=== PATIENT | female | born 1975 | race American Indian/Alaskan Native ===

== ENCOUNTER 2019-03-31 18:16 | Emergency (ER) | payer MEDICAID ==
--- NOTE | 2019-03-31 21:03 | Event Note ---
ED Screening Note Date of service: 03/31/19 Time: 20:59 ED Screening Note: This is a 44 y.o. F. that presents to the ER with vaginal bleeding and abdominal pain started today. LMP 02/06/2019, A0 Patient states she found out 3 days ago [facility]. States she is 4 weeks . Denies vaginal discharge, urinary frequency, urgency, or dysuria. This initial assessment/diagnostic orders/clinical plan/treatment(s) is/are subject to change based on patients health status, clinical progression and re- assessment by fellow clinical providers in the ED. Further treatment and workup at subsequent clinical providers discretion. Patient/guardian urged not to elope from the ED as their condition may be serious if not clinically assessed and managed. Initial orders include: Labs and OB US
[2019-03-31 21:07] VITALS: BP 126/77
[2019-03-31 22:13] LABS: Bilirubin,Urine NEG (Negative); Blood,Urine NEG (Negative); Color,Urine Yellow (Yellow); Mucus,Urine 1+ /HPF; Protein,Urine <15 mg/dL mg/dL (Negative); Urobilinogen,Urine < 2.0 mg/dL (<2.0); WBC,Urine < 1.0 /HPF (0.0-6.0)
--- NOTE | 2019-03-31 22:31 | Ultrasound Report ---
ULTRASOUND OBSTETRIC INDICATION / CLINICAL INFORMATION: spotting and pelvic pain, 4 wks gest. Clinical Gestational Age (GA): 6 weeks 6 days TECHNIQUE: Transabdominal. COMPARISON: None available. FINDINGS: There is a small fluid collection within the uterus possibly representing a gestational sac . This measures 12.1 mm in diameter. There is no yolk sac or pole to confirm that this is a ges tational sac. If fluid collection is a gestational sac it would correspond to a 6 week 0 day IUP. There are 2 large masses within the uterus. The largest mass is in the uterine fundus measuring 10 cm . Overall the uterus measures 17.8 x 10.6 x 9.2 cm. ADNEXA: Nonvisualization of the right ovary. The left ovary is unremarkable. No free fluid. FREE FLUID: None. ADDITIONAL FINDINGS: None. IMPRESSION: 1. Small 12 mm fluid collection within the endometrium of the uterus possibly representing a gestatio nal sac. However, there is no yolk sac or pole to confirm that this is an IUP and therefore cli nical correlation is recommended with follow-up as clinically warranted. 2. Two large uterine fibroids measuring 10.0 and 6.6 cm respectively. Signer Name: Lauren Berg MD Signed: 03/31/2019 10:26 PM Workstation Name: [email or web address]
--- NOTE | 2019-03-31 23:45 | Emergency Department Report ---
Blank Doc - Documentation Documentation: Patient was in room when I went to see her initially and I waited for about 45 minutes and I saw medical office technologist and he told me that he did ultrasound on the patient and he looked like he was fibroids which she told patient. Radiology report reviewed and dictated ultrasound as possible gestational sac with fibroids seen. Patient left because she was instructed by radiologist automotive service technician that she had fibroids and not . Patient ultrasound came back with probability of her being 6 weeks and 3 days . Ultrasound technology spoke with patient and told her that she might have uterine fibroids so patient decided to leave before ultrasound report was back and she was given this information and ultrasound. I called her and she answered the phone but when I told her that I was calling from [facility] she hanged up the phone and several other call winter voicemail. I left a message on her voicemail that she needs to return to the hospital for ultrasound results and other lab test and that was done.
== END 2019-04-01 07:31 | disposition left against medical advice (07) ==
LOC: ED 18:16
DX: O20.8 Other hemorrhage in early pregnancy (principal); Z53.21 Procedure and treatment not carried out due to patient leaving prior to being seen by health care provider
CPT/HCPCS: 76801; 81001

== ENCOUNTER 2019-06-20 12:28 | Emergency (ER) | payer MEDICAID, OTHER ==
[2019-06-20 13:07] VITALS: BP 101/46
--- NOTE | 2019-06-20 13:17 | Event Note ---
ED Screening Note Date of service: 06/20/19 Time: 13:13 ED Screening Note: 44 y o female at 17 weeks presents to ED cc of right buttock pain x 1 week Pt is followed by [facility] . Pt staes pain is worsening with prolonged standing and walking States she went to an Urgent care today and was prescribed [place] tabs for pain Pt denies any problems and states follow up with her obgyn next week Patient denies vaginal bleeding, abdominal pain, dysuria, vaginal discharge or leaking. No swelling, deformity to right buttock Initial orders include: Follow up with her Obgyn advised pt that this may be pregnacy related symptoms and resolves on its own Pt presents with a non-medical emergency Examination is normal, Vital sign are stable Pt given information for clinics to follow up with her MECHANICAL DRAWING TEACHER for further treatment and evaluation Also discussed strict return precautions in detail with pt who verbalized understanding
== END 2019-06-20 13:30 | disposition left against medical advice (07) ==
LOC: ED 12:28
DX: O26.892 Other specified pregnancy related conditions, second trimester (principal); Z3A.17 17 weeks gestation of pregnancy; Z53.21 Procedure and treatment not carried out due to patient leaving prior to being seen by health care provider

== ENCOUNTER 2019-07-18 18:23 | Inpatient (IN) | payer OTHER ==
[2019-07-18] MEDS ORDERED: LACTATED RINGERS 500 ML IV ONE (18:36)
[2019-07-18] MEDS ORDERED: LACTATED RINGERS 1,000 ML IV ONE (20:42)
--- NOTE | 2019-07-18 22:02 | Ultrasound Report ---
US OB >= 14 weeks Fetus INDICATION / CLINICAL INFORMATION: MEASUREMENTS, CERVICAL LENGTH. COMPARISON: 03/31/2019 FINDINGS: Single viable intrauterine gestation in the transverse position. heart rate is 48 bpm. FELICITAS is decreased, 1. BPD 4.8 equal to 20 weeks 3 days Head circumference 18.7 equal to 21 weeks Abdominal circumference 13.2 equal to 18 weeks 5 days Femur length 3.2 equal to 19 weeks 6 days Estimated body weight 296 g. Cervical length 4.2 cm. IMPRESSION: 1. Decreased FELICITAS. 2. bradycardia. 3. Cervical length 4.2 cm Signer Name: Michael Peralta MD Signed: 07/18/2019 9:57 PM Workstation Name: [id number]
[2019-07-18 22:03] LABS: Hematocrit 32.8 % (30.3-42.9); Hemoglobin 10.8 gm/dl (10.1-14.3); Mean Corpuscular HGB Conc 33 % (30-34); Mean Corpuscular Volume 92 fl (79-97); Platelet Count 514 K/mm3 (140-440); Red Blood Count 3.57 M/mm3 (3.65-5.03); Red Cell Distribution Width 14.4 % (13.2-15.2)
[2019-07-18 22:27] LABS: Alanine Aminotransferase 6 units/L (7-56); Albumin 3.2 g/dL (3.9-5); BUN/Creatinine Ratio 12; Blood Urea Nitrogen 6 mg/dL (7-17); Calcium 9.3 mg/dL (8.4-10.2); Hemolysis Index 3
[2019-07-18 22:36] LABS: Basophils % (Manual) 0 % (0.0-1.8); Total Cells Counted 100
[2019-07-18 22:37] LABS: Anisocytosis Few; Platelet Estimate Consistent w Auto
[2019-07-18] MEDS ORDERED: OXYTOCIN 20 UNIT/1000ML DRIP 20,000 MILLIUNITS/1,000 ML BAG IV ONE (22:44)
[2019-07-18] MEDS ORDERED: TERBUTALINE 1 MG/1 ML INJ SUB-Q PRN (23:01)
[2019-07-18] MEDS ORDERED: LIDOCAINE (2%) 20 MG/1 ML VIAL 20 ML MDV INFILTRATI ONE (23:01)
[2019-07-18] MEDS ORDERED: BUTORPHANOL 2 MG/1 ML INJ IV PRN (23:01)
[2019-07-18] MEDS ORDERED: TERBUTALINE 1 MG/1 ML INJ IVP PRN (23:01)
[2019-07-18] MEDS ORDERED: ePHEDrine SULFATE 50 MG/1 ML INJ IV PRN (23:01)
[2019-07-18] MEDS ORDERED: MINERAL OIL 30 ML ORAL LIQD PO PRN (23:01)
[2019-07-18] MEDS ORDERED: ONDANSETRON 4 MG/2 ML INJ IV PRN (23:01)
--- NOTE | 2019-07-18 23:01 | History and Physical Report ---
History of Present Illness Date of examination: 07/18/19 Date of admission: 07/18/19 18:38 Chief complaint: my water broke History of present illness: Pt presents c/o SROM due to being upset she is not able to recall the time but states the fluid was clear. She did not have any pain and had some light bleeing upon arrival in triage. As per RN on arrival pt had visible SROM and some blood tinged fluid. Bedside sono showed an FELICITAS of 0.9cm. Pt was seen in MFM office on 06/22/19 and had normal sono with the following noted: bilateral choroid plexus cyst as well as fibroids ranging in size from 10 to 11cm largest to 2 to 3cm smallest. Sono today shows EGA of 20.0wks c/w EDC. CL on sono today is 4.2cm and on sono on was 4.14cm. EDC Confirmation: 11/23/2019 Gestational Age: 13 4/7 weeks Past History : 3 Term Births: 2 Premature Births: 0 Living Children: 2 Para: 2 Mult. Births: 0 Prev : 0 Prev. attempt? 0 Aborta: 0 Elect. Ab: 0 Spont. 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 of genital herpes: no Partner hx. of genital herpes: no Rash, Viral, or Febrile illness since last LMP? no Varicella/Chicken Pox Status: Previous Disease Genetic History ADVANCED MATERNAL AGE Congenital Heart Defect: Mom: no Dad: no Arline Disease: Mom: no Dad: no Thalassemia Mom: no Dad: no Neural Tube Defect Mom: no Dad: no Down's Syndrome Mom: no Dad: no Trevin-Sachs Mom: no Dad: no Sickle Cell Disease/Trait Mom: no Dad: no Hemophilia Mom: no Dad: no Muscular Dystrophy Mom: no Dad: no Cystic Fibrosis Mom: no Dad: no Delbert Chorea Mom: no Dad: no Mental Retardation Mom: no Dad: no Fragile X Mom: no Dad: no Other Genetic/Chromosomal Disorder Mom: no Dad: no Child w/other defect Mom: no Dad: no Enviromental Exposures Xray Exposure: no Medication, drug, or alcohol use since LMP: no Chemical/Other Exposure: no Exposure to Cat Liter: no Hx of Parvovirus (Fifth Disease): no Occupational Exposure to Children: none Current Allergies (reviewed today): No known allergies Past History Past Medical History: other (see hpi) Past Surgical History: other (see hpi) OFFC SPEC History: other (see hpi) Family/Genetic History: other (see hpi) Social history: other (see hpi) - Obstetrical History Expected Date of Delivery: 11/23/19 Actual Gestation: 21 Week(s) 5 Day(s) : 3 Para: 2 Number of Living Children: 2 Medications and Allergies Allergies Allergy/AdvReac Type Severity Reaction Status Date / Time No Known Allergies Allergy Unverified 08/23/13 09:58 Home Medications Medication Instructions Recorded Confirmed Last Taken Type Meclizine [Antivert] 25 mg PO TID PRN #15 tablet 08/23/13 Unknown Rx Ondansetron [Zofran Odt] 4 mg PO Q6H PRN #10 tab.rapdis 08/23/13 Unknown Rx Sulfamethoxazole/Trimethoprim 1 each PO BID #14 tablet 08/23/13 Unknown Rx [Bactrim Ds] - Vital Signs Vital signs: Vital Signs Pulse BP 96 H 101/74 07/18/19 18:33 07/18/19 18:33 Temp Pulse Resp BP Pulse Ox 90 126/66 07/18/19 19:29 07/18/19 19:29 - Physical Exam Breasts: Positive: deferred Lungs: Positive: Normal air movement Abdomen: Positive: normal appearance, soft. Negative: distention, tenderness Genitourinary (Female): Positive: other (see RN exam. pt did not want pelvic at this time) Results Result Diagrams: 07/18/19 21:41 07/18/19 21:41 Abnormal lab results 07/18/19 07/18/19 Range/Units 21:41 21:41 WBC 13.1 H (4.5-11.0) K/mm3 RBC 3.57 L (3.65-5.03) M/mm3 Plt Count 514 H (140-440) K/mm3 Seg Neuts % (Manual) 74.0 H (40.0-70.0) % Seg Neutrophils # Man 9.7 H (1.8-7.7) K/mm3 Sodium 136 L (137-145) mmol/L Carbon Dioxide 17 L (22-30) mmol/L BUN 6 L (7-17) mg/dL Creatinine 0.5 L (0.7-1.2) mg/dL ALT 6 L (7-56) units/L Albumin 3.2 L (3.9-5) g/dL All other labs normal. Assessment and Plan - Patient Problems (1) 21 weeks gestation of Current Visit: Yes Status: Acute (2) SROM (spontaneous rupture of membranes) Current Visit: Yes Status: Acute (3) premature rupture of membranes (PPROM) with onset of labor after 24 hours of rupture in second trimester, antepartum Current Visit: Yes Status: Acute Plan to address problem: -admit -I d/w pt the likely fernández of delivery and due to gestational age this would be her recommend course and no intervention would be done -antibx for now (4) AMA (advanced maternal age) multigravida 35+ Current Visit: Yes Status: Acute (5) Fibroid Current Visit: Yes Status: Acute
[2019-07-18] MEDS: fentaNYL 100 MCG/2 ML INJ IV PRN (23:13)
[2019-07-18] MEDS: AMPICILLIN/NS 1 GM/50 ML 1 GM/50 ML BAG IV SCH (23:30)
[2019-07-18] MEDS: LACTATED RINGERS 1,000 ML IV SCH (23:31)
--- NOTE | 2019-07-18 23:37 | Event Note ---
Date: 07/18/19 was called urgently to pt room by nurse. Exam shoed cord protruding from the labia. Exam showed cx to be 3/100/ parts at 0 station. I again d/w pt that she is now in labor and will likely deliver. I d/w that I will not give meds at this time to augment the labor but if she develops a temp/fever then this would be recommended. Pt does request pain meds at this time. Pt expressed understanding of plan of care and desires for who is on his way to the hospital to join her at this time. Pt agrees with expectant management at this time.
[2019-07-18] MEDS ORDERED: OXYTOCIN 20 UNIT/1000ML DRIP 20 UNITS/1,000 ML BAG IV SCH (23:45)
[2019-07-18] MEDS ORDERED: OXYTOCIN DRIP 30 UNITS/500 ML BAG IV SCH (23:45)
[2019-07-19] MEDS: fentaNYL 100 MCG/2 ML INJ IV PRN ×2 (01:43→06:30)
--- NOTE | 2019-07-19 02:19 | Event Note ---
Date: 07/19/19 Pt still desires conservative treatment at this time w/o any intervention with pitocin to augment delivery. She has no s/sx of chorio at this time. I did d/w that due to parts being in the vagina and the cord prolapsing that it demise has likely occurred. She expressed understanding and all questions were addressed and answered.
[2019-07-19] MEDS: AMPICILLIN/NS 1 GM/50 ML 1 GM/50 ML BAG IV SCH ×4 (03:36→15:53)
[2019-07-19] MEDS: LACTATED RINGERS 1,000 ML IV SCH (06:35)
--- NOTE | 2019-07-19 07:54 | Progress Note ---
Assessment and Plan - Patient Problems (1) Inevitable Current Visit: Yes Status: Acute Plan to address problem: Patient now states she desires to proceed with delivery after epidural. Questions encouraged and answered and agrees with plan of care (2) 21 weeks gestation of Current Visit: Yes Status: Acute (3) AMA (advanced maternal age) multigravida 35+ Current Visit: Yes Status: Acute (4) Fibroid Current Visit: Yes Status: Acute (5) premature rupture of membranes (PPROM) with onset of labor after 24 hours of rupture in second trimester, antepartum Current Visit: Yes Status: Acute (6) SROM (spontaneous rupture of membranes) Current Visit: Yes Status: Acute Subjective - Subjective Date of service: 07/19/19 Principal diagnosis: IUP@ 21weeks SROM Interval history: Cord loop hanging from the vagina. No complaints Patient reports: no new complaints Objective - Vital Signs Vital Signs: Vital Signs - 12hr 07/19/19 07/19/19 07/19/19 00:53 01:49 02:55 Temperature 98.4 F 97.8 F Pulse Rate 92 H Blood Pressure 108/66 07/19/19 07/19/19 07/19/19 05:00 07:00 07:27 Temperature 98.5 F 98.8 F Pulse Rate 93 H Blood Pressure 118/66 07/19/19 07:29 Temperature Pulse Rate 98 H Blood Pressure 135/70 - Exam Lungs: Normal air movement Abdomen: Absent: tenderness Vulva: both: normal Uterus: Absent: tenderness Cervical Dilatation: 5 Cervical Effacement Percentage: 100 station: part at 1+ - Labs Labs: Abnormal Labs 07/18/19 07/18/19 21:41 21:41 WBC 13.1 H RBC 3.57 L Plt Count 514 H Seg Neuts % (Manual) 74.0 H Seg Neutrophils # Man 9.7 H Sodium 136 L Carbon Dioxide 17 L BUN 6 L Creatinine 0.5 L ALT 6 L Albumin 3.2 L Laboratory Results - last 24 hr 07/18/19 07/18/19 07/18/19 21:41 21:41 21:41 WBC 13.1 H RBC 3.57 L Hgb 10.8 Hct 32.8 MCV 92 MCH 30 MCHC 33 RDW 14.4 Plt Count 514 H Lymph # Clinical Biochemical Geneticist Add Manual Diff Complete Total Counted 100 Seg Neuts % (Manual) 74.0 H Band Neutrophils % 0 Lymphocytes % (Manual) 21.0 Reactive Lymphs % (Man) 0 Monocytes % (Manual) 4.0 Eosinophils % (Manual) 1.0 Basophils % (Manual) 0 Metamyelocytes % 0 Myelocytes % 0 Promyelocytes % 0 Blast Cells % 0 Nucleated RBC % Not Reportable Seg Neutrophils # Man 9.7 H Band Neutrophils # 0.0 Lymphocytes # (Manual) 2.8 Abs React Lymphs (Man) 0.0 Monocytes # (Manual) 0.5 Eosinophils # (Manual) 0.1 Basophils # (Manual) 0.0 Metamyelocytes # 0.0 Myelocytes # 0.0 Promyelocytes # 0.0 Blast Cells # 0.0 WBC Morphology Not Reportable Hypersegmented Neuts Not Reportable Hyposegmented Neuts Not Reportable Hypogranular Neuts Not Reportable Smudge Cells Not Reportable Toxic Granulation Not Reportable Toxic Vacuolation Not Reportable Dohle Bodies Not Reportable Pelger-Huet Anomaly Not Reportable Ramesh Rods Not Reportable Platelet Estimate Consistent w auto Clumped Platelets Not Reportable Plt Clumps, EDTA Not Reportable Large Platelets Not Reportable Giant Platelets Not Reportable Platelet Satelliting Not Reportable Plt Morphology Comment Not Reportable RBC Morphology Not Reportable Dimorphic RBCs Not Reportable Polychromasia Not Reportable Hypochromasia Not Reportable Poikilocytosis Not Reportable Anisocytosis Few Microcytosis Not Reportable Macrocytosis Not Reportable Spherocytes Not Reportable Pappenheimer Bodies Not Reportable Sickle Cells Not Reportable Target Cells Not Reportable Tear Drop Cells Not Reportable Ovalocytes Not Reportable Helmet Cells Not Reportable Borges-[place] Bodies Not Reportable [place] Rings Not Reportable Karen Cells Not Reportable Bite Cells Not Reportable Crenated Cell Not Reportable Elliptocytes Not Reportable Acanthocytes (Spur) Not Reportable Rouleaux Not Reportable Hemoglobin C Crystals Not Reportable Schistocytes Not Reportable Malaria parasites Not Reportable Jose Bodies Not Reportable Hem Pathologist Commnt No Sodium 136 L Potassium 3.9 Chloride 101.6 Carbon Dioxide 17 L Anion Gap 21 BUN 6 L Creatinine 0.5 L Estimated GFR > 60 BUN/Creatinine Ratio 12 Glucose 79 Calcium 9.3 Total Bilirubin < 0.20 AST 9 ALT 6 L Alkaline Phosphatase 88 Total Protein 6.4 Albumin 3.2 L Albumin/Globulin Ratio 1.0 Blood Type O POSITIVE Antibody Screen Negative
--- NOTE | 2019-07-19 09:38 | Anesthesia Consultation ---
Anesthesia Consult and Med Hx Date of service: 07/19/19 - Airway Anesthetic Teeth Evaluation: Good ROM Head & Neck: Adequate Mental/Hyoid Distance: Adequate Mallampati Class: Class II Intubation Access Assessment: Probably Good - Pre-Operative Health Status ASA Pre-Surgery Classification: ASA2 Proposed Anesthetic Plan: Epidural, Spinal - Pulmonary Hx Asthma: No COPD: No Hx Pneumonia: No - Cardiovascular System Hx Hypertension: No - Central Nervous System Hx Seizures: No Hx Psychiatric Problems: No - Endocrine Hx Renal Disease: No Hx End Stage Renal Disease: No Hx Hypothyroidism: No Hx Hyperthyroidism: No - Hematic Hx Anemia: No Hx Sickle Cell Disease: No - Other Systems Hx Alcohol Use: No - Additional Comments Anesthesia Medical History Comments: 21 weeks IUFD
[2019-07-19] MEDS ORDERED: NALOXONE 2 MG/2 ML INJ IV PRN (09:39)
[2019-07-19] MEDS ORDERED: ePHEDrine SULFATE 50 MG/1 ML INJ IV PRN (09:39)
--- NOTE | 2019-07-19 09:39 | Progress Note ---
Labor Epidural - Labor Epidural Start Time: :11 Stop Time: :25 Performed by:: KAMRAN RODRIGUEZ Procedure: Patient requesting epidural for labor pain. Patient interviewed, IDed, consent signed. In the sterile conditions under local anesthesia 18G needle is placed in L3-L4 epidural space using water resistance technique. Spinal G27 needle is directed through the spinal membrane. Injected .5cc .75% Marcaine intrathecally. Epidural catheter passed to 14cm lesley. Negative aspiration test and negative test dose. Tolerated well.
[2019-07-19] MEDS ORDERED: fentaNYL-BUPIV 2 MCG/ML-0.125% 200 MCG/100 ML BAG EPIDURAL SCH (10:00)
--- NOTE | 2019-07-19 12:31 | Progress Note ---
Assessment and Plan pitocin currently at 8mU, cord and arm in vagina. cervix remains 5.5/70% effaced. VSSAF. encouraged nurse to increase pitocin as ordered. - Patient Problems (1) 21 weeks gestation of Current Visit: Yes Status: Acute (2) premature rupture of membranes (PPROM) with onset of labor after 24 hours of rupture in second trimester, antepartum Current Visit: Yes Status: Acute Subjective - Subjective Date of service: 07/19/19 Principal diagnosis: IUP@ 21weeks SROM Patient reports: no new complaints (comfortable with epidural) Objective - Vital Signs Vital Signs: Vital Signs - 12hr 07/19/19 07/19/19 07/19/19 00:53 01:49 02:55 Temperature 98.4 F 97.8 F Pulse Rate 92 H Blood Pressure 108/66 O2 Sat by Pulse Oximetry 07/19/19 07/19/19 07/19/19 05:00 07:00 07:27 Temperature 98.5 F 98.8 F Pulse Rate 93 H Blood Pressure 118/66 O2 Sat by Pulse Oximetry 07/19/19 07/19/19 07/19/19 07:29 09:14 09:16 Temperature Pulse Rate 98 H 110 H 113 H Blood Pressure 135/70 126/77 O2 Sat by Pulse 95 Oximetry 07/19/19 07/19/19 07/19/19 09:18 09:19 09:20 Temperature Pulse Rate 103 H 106 H 108 H Blood Pressure 121/65 112/61 O2 Sat by Pulse 99 Oximetry 07/19/19 07/19/19 07/19/19 09:22 09:24 09:25 Temperature Pulse Rate 100 H 114 H 105 H Blood Pressure 109/67 136/83 O2 Sat by Pulse 100 Oximetry 07/19/19 07/19/19 07/19/19 09:26 09:28 09:29 Temperature Pulse Rate 93 H 99 H 91 H Blood Pressure 111/69 107/70 O2 Sat by Pulse 100 Oximetry 07/19/19 07/19/19 07/19/19 09:30 09:32 09:34 Temperature Pulse Rate 99 H 95 H 92 H Blood Pressure 108/68 110/65 108/62 O2 Sat by Pulse 100 Oximetry 07/19/19 07/19/19 07/19/19 09:37 09:39 09:44 Temperature Pulse Rate 99 H 94 H 95 H Blood Pressure 113/61 O2 Sat by Pulse 100 100 Oximetry 07/19/19 07/19/19 07/19/19 09:49 09:54 09:59 Temperature Pulse Rate 98 H 95 H 92 H Blood Pressure O2 Sat by Pulse 100 100 100 Oximetry 07/19/19 07/19/19 07/19/19 10:04 10:07 10:09 Temperature Pulse Rate 95 H 99 H 98 H Blood Pressure 112/79 O2 Sat by Pulse 100 100 Oximetry 07/19/19 07/19/19 07/19/19 10:14 10:19 10:24 Temperature Pulse Rate 96 H 95 H 96 H Blood Pressure O2 Sat by Pulse 99 100 100 Oximetry 07/19/19 07/19/19 07/19/19 10:29 10:34 10:37 Temperature Pulse Rate 92 H 92 H 90 Blood Pressure 112/59 O2 Sat by Pulse 100 98 94 Oximetry 07/19/19 07/19/19 07/19/19 10:39 10:42 10:44 Temperature Pulse Rate 90 91 H 94 H Blood Pressure O2 Sat by Pulse 99 94 100 Oximetry 07/19/19 07/19/19 07/19/19 10:49 10:50 10:54 Temperature Pulse Rate 89 86 90 Blood Pressure O2 Sat by Pulse 99 94 97 Oximetry 07/19/19 07/19/19 07/19/19 10:59 11:04 11:07 Temperature Pulse Rate 91 H 89 87 Blood Pressure 97/52 O2 Sat by Pulse 100 100 Oximetry 07/19/19 07/19/19 07/19/19 11:09 11:14 11:19 Temperature Pulse Rate 90 92 H 91 H Blood Pressure O2 Sat by Pulse 100 100 100 Oximetry 07/19/19 07/19/19 07/19/19 11:24 11:29 11:34 Temperature Pulse Rate 88 91 H 92 H Blood Pressure O2 Sat by Pulse 100 100 100 Oximetry 07/19/19 07/19/19 07/19/19 11:37 11:39 11:44 Temperature Pulse Rate 90 92 H 94 H Blood Pressure 102/51 O2 Sat by Pulse 100 100 Oximetry 07/19/19 07/19/19 07/19/19 11:49 11:54 11:59 Temperature Pulse Rate 94 H 93 H 89 Blood Pressure O2 Sat by Pulse 100 100 100 Oximetry 07/19/19 07/19/19 07/19/19 12:04 12:07 12:09 Temperature Pulse Rate 90 87 89 Blood Pressure 116/57 O2 Sat by Pulse 100 93 100 Oximetry 07/19/19 07/19/19 07/19/19 12:14 12:19 12:23 Temperature Pulse Rate 93 H 93 H 94 H Blood Pressure O2 Sat by Pulse 100 100 92 Oximetry 07/19/19 12:24 Temperature Pulse Rate 99 H Blood Pressure O2 Sat by Pulse 99 Oximetry - Exam Cardiovascular: Regular rate Lungs: Normal air movement Abdomen: Present: normal appearance, soft Vulva: both: normal Uterus: Present: normal FHR: other (no heartbeat palpated through prolapsed cord) Uterine Contraction Monitor Mode: External Uterine Tone Measurement Phase: Resting - Labs Labs: Abnormal Labs 07/18/19 07/18/19 21:41 21:41 WBC 13.1 H RBC 3.57 L Plt Count 514 H Seg Neuts % (Manual) 74.0 H Seg Neutrophils # Man 9.7 H Sodium 136 L Carbon Dioxide 17 L BUN 6 L Creatinine 0.5 L ALT 6 L Albumin 3.2 L Laboratory Results - last 24 hr 07/18/19 07/18/19 07/18/19 21:41 21:41 21:41 WBC 13.1 H RBC 3.57 L Hgb 10.8 Hct 32.8 MCV 92 MCH 30 MCHC 33 RDW 14.4 Plt Count 514 H Lymph # Blending Kettle Tender Add Manual Diff Complete Total Counted 100 Seg Neuts % (Manual) 74.0 H Band Neutrophils % 0 Lymphocytes % (Manual) 21.0 Reactive Lymphs % (Man) 0 Monocytes % (Manual) 4.0 Eosinophils % (Manual) 1.0 Basophils % (Manual) 0 Metamyelocytes % 0 Myelocytes % 0 Promyelocytes % 0 Blast Cells % 0 Nucleated RBC % Not Reportable Seg Neutrophils # Man 9.7 H Band Neutrophils # 0.0 Lymphocytes # (Manual) 2.8 Abs React Lymphs (Man) 0.0 Monocytes # (Manual) 0.5 Eosinophils # (Manual) 0.1 Basophils # (Manual) 0.0 Metamyelocytes # 0.0 Myelocytes # 0.0 Promyelocytes # 0.0 Blast Cells # 0.0 WBC Morphology Not Reportable Hypersegmented Neuts Not Reportable Hyposegmented Neuts Not Reportable Hypogranular Neuts Not Reportable Smudge Cells Not Reportable Toxic Granulation Not Reportable Toxic Vacuolation Not Reportable Dohle Bodies Not Reportable Pelger-Huet Anomaly Not Reportable Ramesh Rods Not Reportable Platelet Estimate Consistent w auto Clumped Platelets Not Reportable Plt Clumps, EDTA Not Reportable Large Platelets Not Reportable Giant Platelets Not Reportable Platelet Satelliting Not Reportable Plt Morphology Comment Not Reportable RBC Morphology Not Reportable Dimorphic RBCs Not Reportable Polychromasia Not Reportable Hypochromasia Not Reportable Poikilocytosis Not Reportable Anisocytosis Few Microcytosis Not Reportable Macrocytosis Not Reportable Spherocytes Not Reportable Pappenheimer Bodies Not Reportable Sickle Cells Not Reportable Target Cells Not Reportable Tear Drop Cells Not Reportable Ovalocytes Not Reportable Helmet Cells Not Reportable Borges-[place] Bodies Not Reportable Bertram Rings Not Reportable [place] Cells Not Reportable Bite Cells Not Reportable Crenated Cell Not Reportable Elliptocytes Not Reportable Acanthocytes (Spur) Not Reportable Rouleaux Not Reportable Hemoglobin C Crystals Not Reportable Schistocytes Not Reportable Malaria parasites Not Reportable Jsoe Bodies Not Reportable Hem Pathologist Commnt No Sodium 136 L Potassium 3.9 Chloride 101.6 Carbon Dioxide 17 L Anion Gap 21 BUN 6 L Creatinine 0.5 L Estimated GFR > 60 BUN/Creatinine Ratio 12 Glucose 79 Calcium 9.3 Total Bilirubin < 0.20 AST 9 ALT 6 L Alkaline Phosphatase 88 Total Protein 6.4 Albumin 3.2 L Albumin/Globulin Ratio 1.0 Blood Type O POSITIVE Antibody Screen Negative
--- NOTE | 2019-07-19 14:31 | Event Note ---
Date: 07/19/[address] Nolan, plan to stop pitocin and start cytotec PV. RN called and informed of new plan.
[2019-07-19] MEDS ORDERED: miSOPROStol 200 MCG TAB VG ONE (15:00)
--- NOTE | 2019-07-19 15:54 | Progress Note ---
Assessment and Plan no change in patient's status, reviewed plan with patient. questions addressed. 600mcg cytotec placed behind cervix. - Patient Problems (1) 21 weeks gestation of Current Visit: Yes Status: Acute (2) premature rupture of membranes (PPROM) with onset of labor after 24 hours of rupture in second trimester, antepartum Current Visit: Yes Status: Acute Subjective - Subjective Date of service: 07/19/19 Principal diagnosis: IUP@ 21weeks SROM Patient reports: no new complaints (comfortable with epidural) Objective - Vital Signs Vital Signs: Vital Signs - 12hr 07/19/19 07/19/19 07/19/19 05:00 07:00 07:27 Temperature 98.5 F 98.8 F Pulse Rate 93 H Blood Pressure 118/66 O2 Sat by Pulse Oximetry 07/19/19 07/19/19 07/19/19 07:29 09:14 09:16 Temperature Pulse Rate 98 H 110 H 113 H Blood Pressure 135/70 126/77 O2 Sat by Pulse 95 Oximetry 07/19/19 07/19/19 07/19/19 09:18 09:19 09:20 Temperature Pulse Rate 103 H 106 H 108 H Blood Pressure 121/65 112/61 O2 Sat by Pulse 99 Oximetry 07/19/19 07/19/19 07/19/19 09:22 09:24 09:25 Temperature Pulse Rate 100 H 114 H 105 H Blood Pressure 109/67 136/83 O2 Sat by Pulse 100 Oximetry 07/19/19 07/19/19 07/19/19 09:26 09:28 09:29 Temperature Pulse Rate 93 H 99 H 91 H Blood Pressure 111/69 107/70 O2 Sat by Pulse 100 Oximetry 07/19/19 07/19/19 07/19/19 09:30 09:32 09:34 Temperature Pulse Rate 99 H 95 H 92 H Blood Pressure 108/68 110/65 108/62 O2 Sat by Pulse 100 Oximetry 07/19/19 07/19/19 07/19/19 09:37 09:39 09:44 Temperature Pulse Rate 99 H 94 H 95 H Blood Pressure 113/61 O2 Sat by Pulse 100 100 Oximetry 07/19/19 07/19/19 07/19/19 09:49 09:54 09:59 Temperature Pulse Rate 98 H 95 H 92 H Blood Pressure O2 Sat by Pulse 100 100 100 Oximetry 07/19/19 07/19/19 07/19/19 10:04 10:07 10:09 Temperature Pulse Rate 95 H 99 H 98 H Blood Pressure 112/79 O2 Sat by Pulse 100 100 Oximetry 07/19/19 07/19/19 07/19/19 10:14 10:19 10:24 Temperature Pulse Rate 96 H 95 H 96 H Blood Pressure O2 Sat by Pulse 99 100 100 Oximetry 07/19/19 07/19/19 07/19/19 10:29 10:34 10:37 Temperature Pulse Rate 92 H 92 H 90 Blood Pressure 112/59 O2 Sat by Pulse 100 98 94 Oximetry 07/19/19 07/19/19 07/19/19 10:39 10:42 10:44 Temperature Pulse Rate 90 91 H 94 H Blood Pressure O2 Sat by Pulse 99 94 100 Oximetry 07/19/19 07/19/19 07/19/19 10:49 10:50 10:54 Temperature Pulse Rate 89 86 90 Blood Pressure O2 Sat by Pulse 99 94 97 Oximetry 07/19/19 07/19/19 07/19/19 10:59 11:04 11:07 Temperature Pulse Rate 91 H 89 87 Blood Pressure 97/52 O2 Sat by Pulse 100 100 Oximetry 07/19/19 07/19/19 07/19/19 11:09 11:14 11:19 Temperature Pulse Rate 90 92 H 91 H Blood Pressure O2 Sat by Pulse 100 100 100 Oximetry 07/19/19 07/19/19 07/19/19 11:24 11:29 11:34 Temperature Pulse Rate 88 91 H 92 H Blood Pressure O2 Sat by Pulse 100 100 100 Oximetry 07/19/19 07/19/19 07/19/19 11:37 11:39 11:44 Temperature Pulse Rate 90 92 H 94 H Blood Pressure 102/51 O2 Sat by Pulse 100 100 Oximetry 07/19/19 07/19/19 07/19/19 11:49 11:54 11:59 Temperature Pulse Rate 94 H 93 H 89 Blood Pressure O2 Sat by Pulse 100 100 100 Oximetry 07/19/19 07/19/19 07/19/19 12:04 12:07 12:09 Temperature Pulse Rate 90 87 89 Blood Pressure 116/57 O2 Sat by Pulse 100 93 100 Oximetry 07/19/19 07/19/19 07/19/19 12:14 12:19 12:23 Temperature Pulse Rate 93 H 93 H 94 H Blood Pressure O2 Sat by Pulse 100 100 92 Oximetry 07/19/19 07/19/19 07/19/19 12:24 12:29 12:34 Temperature Pulse Rate 99 H 93 H 94 H Blood Pressure O2 Sat by Pulse 99 100 100 Oximetry 07/19/19 07/19/19 07/19/19 12:38 12:39 12:44 Temperature Pulse Rate 87 92 H 90 Blood Pressure 108/56 O2 Sat by Pulse 99 100 Oximetry 07/19/19 07/19/19 07/19/19 12:49 12:54 12:59 Temperature Pulse Rate 94 H 90 94 H Blood Pressure O2 Sat by Pulse 100 100 100 Oximetry 07/19/19 07/19/19 07/19/19 13:04 13:07 13:09 Temperature Pulse Rate 85 88 95 H Blood Pressure 118/60 O2 Sat by Pulse 100 100 Oximetry 07/19/19 07/19/19 07/19/19 13:14 13:19 13:24 Temperature Pulse Rate 90 86 86 Blood Pressure O2 Sat by Pulse 99 100 99 Oximetry 07/19/19 07/19/19 07/19/19 13:38 14:07 14:38 Temperature Pulse Rate 90 90 98 H Blood Pressure 99/52 114/66 118/61 O2 Sat by Pulse Oximetry 07/19/19 07/19/19 15:07 15:49 Temperature Pulse Rate 101 H 110 H Blood Pressure 118/58 130/58 O2 Sat by Pulse Oximetry - Exam Cardiovascular: Regular rate Lungs: Normal air movement Abdomen: Present: normal appearance, soft Vulva: both: normal Uterine Contraction Monitor Mode: External Cervical Dilatation: 5.5 Cervical Effacement Percentage: 70 Uterine Tone Measurement Phase: Resting - Labs Labs: Abnormal Labs 07/18/19 07/18/19 21:41 21:41 WBC 13.1 H RBC 3.57 L Plt Count 514 H Seg Neuts % (Manual) 74.0 H Seg Neutrophils # Man 9.7 H Sodium 136 L Carbon Dioxide 17 L BUN 6 L Creatinine 0.5 L ALT 6 L Albumin 3.2 L Laboratory Results - last 24 hr 07/18/19 07/18/19 07/18/19 21:41 21:41 21:41 WBC 13.1 H RBC 3.57 L Hgb 10.8 Hct 32.8 MCV 92 MCH 30 MCHC 33 RDW 14.4 Plt Count 514 H Lymph # Help Desk Coordinator Add Manual Diff Complete Total Counted 100 Seg Neuts % (Manual) 74.0 H Band Neutrophils % 0 Lymphocytes % (Manual) 21.0 Reactive Lymphs % (Man) 0 Monocytes % (Manual) 4.0 Eosinophils % (Manual) 1.0 Basophils % (Manual) 0 Metamyelocytes % 0 Myelocytes % 0 Promyelocytes % 0 Blast Cells % 0 Nucleated RBC % Not Reportable Seg Neutrophils # Man 9.7 H Band Neutrophils # 0.0 Lymphocytes # (Manual) 2.8 Abs React Lymphs (Man) 0.0 Monocytes # (Manual) 0.5 Eosinophils # (Manual) 0.1 Basophils # (Manual) 0.0 Metamyelocytes # 0.0 Myelocytes # 0.0 Promyelocytes # 0.0 Blast Cells # 0.0 WBC Morphology Not Reportable Hypersegmented Neuts Not Reportable Hyposegmented Neuts Not Reportable Hypogranular Neuts Not Reportable Smudge Cells Not Reportable Toxic Granulation Not Reportable Toxic Vacuolation Not Reportable Dohle Bodies Not Reportable Pelger-Huet Anomaly Not Reportable Ramesh Rods Not Reportable Platelet Estimate Consistent w auto Clumped Platelets Not Reportable Plt Clumps, EDTA Not Reportable Large Platelets Not Reportable Giant Platelets Not Reportable Platelet Satelliting Not Reportable Plt Morphology Comment Not Reportable RBC Morphology Not Reportable Dimorphic RBCs Not Reportable Polychromasia Not Reportable Hypochromasia Not Reportable Poikilocytosis Not Reportable Anisocytosis Few Microcytosis Not Reportable Macrocytosis Not Reportable Spherocytes Not Reportable Pappenheimer Bodies Not Reportable Sickle Cells Not Reportable Target Cells Not Reportable Tear Drop Cells Not Reportable Ovalocytes Not Reportable Helmet Cells Not Reportable [place] Bodies Not Reportable Rainbow Rings Not Reportable Karen Cells Not Reportable Bite Cells Not Reportable Crenated Cell Not Reportable Elliptocytes Not Reportable Acanthocytes (Spur) Not Reportable Rouleaux Not Reportable Hemoglobin C Crystals Not Reportable Schistocytes Not Reportable Malaria parasites Not Reportable Jose Bodies Not Reportable Hem Pathologist Commnt No Sodium 136 L Potassium 3.9 Chloride 101.6 Carbon Dioxide 17 L Anion Gap 21 BUN 6 L Creatinine 0.5 L Estimated GFR > 60 BUN/Creatinine Ratio 12 Glucose 79 Calcium 9.3 Total Bilirubin < 0.20 AST 9 ALT 6 L Alkaline Phosphatase 88 Total Protein 6.4 Albumin 3.2 L Albumin/Globulin Ratio 1.0 Blood Type O POSITIVE Antibody Screen Negative
[2019-07-19] MEDS ORDERED: METHYLERGONOVINE MALEATE 0.2 MG/ML VIAL IM ONE (17:15)
--- NOTE | 2019-07-19 17:25 | Procedure Note ---
OB Delivery Note - Delivery Date of Delivery: 07/19/19 (Male infant, , IUFD) Band Sawyer: ROC SAAB Estimated blood loss: <100cc - Vaginal Delivery presentation: breech Intrapartum events: labor-<37 weeks, PROM->1hr before delivery, foul smelling fluid, other(please specify) (nonviable demise) Delivery induction: misoprostol Delivery monitor: external uterine Route of delivery: Delivery placenta: manual Delivery cord: 3 umbilical vessels Episiotomy: none Delivery laceration: none Anesthesia: epidural Delivery comments: called to room, nonviable male delivered in bed, appears to have delivered breech. cord clamped and cut. while assessing cord and placenta, cord avulsed. Placenta noted inside cervix, removed manually mostly in one piece. no additional pieces of placenta noted in uterus. Placenta macerated with foul odor noted. bleeding scant, fundus firm. Will give one dose of methergine IM now and continue to assess. pt refused to see baby, encouraged pt and FOC to sanchez with to help with the stages of grieving. - Infant A at 1 minute: 0 at 5 minutes: 0 Infant Gender: Male
[2019-07-19] MEDS ORDERED: HYDROcodone/ACETAMINOPHEN 5-325 MG TAB PO PRN (20:06)
[2019-07-19] MEDS ORDERED: WITCH HAZEL/ GLYCERIN PAD TP PRN (20:06)
[2019-07-19] MEDS ORDERED: diphenhydrAMINE 25 MG CAP PO PRN (20:06)
[2019-07-19] MEDS ORDERED: PROMETHAZINE 25 MG TAB PO PRN (20:06)
[2019-07-19] MEDS ORDERED: IBUPROFEN 600 MG TAB PO SCH (20:06)
[2019-07-19] MEDS ORDERED: OXYTOCIN 20 UNIT/1000ML DRIP 20 UNITS/1,000 ML BAG IV SCH (20:06)
[2019-07-19] MEDS ORDERED: LANOLIN/ZINC/DIMETHICONE (LANSINOH) 7 GM TP PRN (20:06)
[2019-07-19] MEDS ORDERED: MAGNESIUM HYDROXIDE (MOM) ORAL LIQD UDC PO PRN (20:06)
[2019-07-19] MEDS ORDERED: ACETAMINOPHEN 325 MG TAB PO PRN (20:06)
[2019-07-19] MEDS: IBUPROFEN 800 MG TAB PO SCH (23:03)
[2019-07-20] MEDS ORDERED: MEASLES, MUMPS & RUBELLA 12,500 UNIT/0.5 ML VACCINE SUB-Q ONE (06:00)
[2019-07-20 08:21] VITALS: BP 121/92
--- NOTE | 2019-07-20 08:48 | Discharge Summary ---
Providers - Providers Date of Admission: 07/18/19 18:38 Date of discharge: 07/20/19 (Pt has very strong desire to go home.) Attending physician: ELLIOT KIDD Primary care physician: ORAL VERNON Hospitalization Reason for admission: active labor, rupture of membranes Delivery: Episiotomy: none Laceration: none complications: none Discharge diagnosis: intrapartum demise baby: male Hospital course: S: Pt is sad, grieving appropriately after IUFD delivery. States was on Lexapro previously and will go to her mental health provider for assistance. Offered mental health to see her before discharge and pt states "If thats going to keep me here much longer, then I don't want it. I'll just go to where I was going before for help". Denies feelings of harming herself or anyone else. Is amb ulating passing flatus and voiding okay. BC: Nexplanon. O: VSS, H/H 10.8/32.8. Minimal bleeding noted. I&O's adequate. A: 44 y.o. s/p of IUFD @ 21 + weeks with very strong desire to go home. P: Discharge home with instructions. Schedule visit in 4 weeks. Condition at discharge: Good Disposition: [id number]-01 TO HOME OR SELFCARE Plan - Provider Discharge Summary Activity: routine, no sex for 6 weeks, no heavy lifting 4 weeks, no strenuous exercise Diet: routine Instructions: routine Additional instructions: [] Smoking cessation referral if applicable(refer to patient education folder for contact #) [] Refer to [facility] Booklet Call your doctor immediately for: * Fever > 100.5 * Heavy vaginal bleeding ( >1 pad per hour) * Severe persistent headache * Shortness of breath * Reddened, hot, painful area to leg or breast * Drainage or odor from incision. * Keep incision clean and dry at all times and follow doctor's instructions regarding bathing/showering - Follow up plan Follow up: ORAL VERNON MD [Primary Care Provider] - 7 Days BOOGIE LAGUNA CNM [Advanced Practice Nurse] - 08/16/19 (Please schedule an appointment in 4 weeks for a visit. If you have any questions or concerns, please call the office for help. If you have feelings of harming yourself or anyone else, please call for assistance. Office number: [phone]. )
[2019-07-20 09:00] LABS: Hematocrit 34.4 % (30.3-42.9); Hemoglobin 11.2 gm/dl (10.1-14.3)
[2019-07-20] MEDS: IBUPROFEN 800 MG TAB PO SCH (09:16)
--- NOTE | 2019-07-20 13:05 | Post Anesthesia Evaluation ---
- Post Anesthesia Evaluation Patient Participated: Yes Airway Patent: Yes Stable Respiratory Function: Yes Nausea/Vomiting: No Temp > 96.8F: Yes Pain Manageable: Yes Adequeate Hydration: Yes Anesthesia Complications: No Block Receding Appropriately: Yes Patient on Ventilator: No
== END 2019-07-20 10:00 | disposition home or self-care (01) | DRG 775 ==
LOC: TRG 18:23 → UNDOADMOB 18:38 → LD 18:38 → OBSVTOIN 07-19 20:06 → LD 07-19 20:06 → OB 07-19 23:16 → LD 07-19 23:16
PROVIDERS: ADMIT Obstetrics & Gynecology; ATTEND Obstetrics & Gynecology
PROC: 10E0XZZ Delivery of Products of Conception, External Approach (ICD-10-PCS; principal; 2019-07-19)
PROC: 3E033VJ Introduction of Other Hormone into Peripheral Vein, Percutaneous Approach (ICD-10-PCS; 2019-07-19)
PROC: 3E0R3BZ Introduction of Anesthetic Agent into Spinal Canal, Percutaneous Approach (ICD-10-PCS; 2019-07-19)
PROC: 00HU33Z Insertion of Infusion Device into Spinal Canal, Percutaneous Approach (ICD-10-PCS; 2019-07-19)
PROC: 3E0234Z Introduction of Serum, Toxoid and Vaccine into Muscle, Percutaneous Approach (ICD-10-PCS; 2019-07-20)
DX: O32.1XX0 Maternal care for breech presentation, not applicable or unspecified (principal); O60.12X0 Preterm labor second trimester with preterm delivery second trimester, not applicable or unspecified; O42.912 Preterm premature rupture of membranes, unspecified as to length of time between rupture and onset of labor, second trimester; O34.12 Maternal care for benign tumor of corpus uteri, second trimester; D25.9 Leiomyoma of uterus, unspecified; Z3A.21 21 weeks gestation of pregnancy; Z37.1 Single stillbirth; Z82.49 Family history of ischemic heart disease and other diseases of the circulatory system; Z23 Encounter for immunization
CPT/HCPCS: 36415; 76805; 80053; 85007; 85014; 85018; 85025; 86850; 86900; 86901; 88305; G0378; J0290; J2210; J2405; J2590; J3010; J7120